=== PATIENT | female | born 1985 | race Caucasian/White ===

== ENCOUNTER → 2017-09-01 | Outpatient (CLI) | payer OTHER ==
--- NOTE | 2017-09-01 16:26 | RAD ---
Right lower extremity venous duplex ultrasound. 09/01/2017 4:23 PM Indication: RT ANKLE PAIN Comparison study: None Discussion: Sonographic evaluation of the deep veins of the right lower extremity was performed. This includes grayscale imaging and color duplex imaging with spectral analysis. No evidence of deep venous thrombosis is seen. Interrogated veins are compressible and demonstrate augmentable blood flow and color Doppler imaging. Impression: No evidence of deep venous thrombosis involving the right lower extremity
== END | disposition home or self-care (01) ==
LOC: US 15:40
PROVIDERS: ATTEND Family Medicine
DX: M25.571 Pain in right ankle and joints of right foot (principal); M79.89 Other specified soft tissue disorders
CPT/HCPCS: 93971